=== PATIENT | male | born 1945 | race Caucasian/White ===

== ENCOUNTER 2018-12-15 14:21 | Inpatient (IN) | payer OTHER ==
[~2018-12-15] VITALS: Ht 175.3 cm; Wt 83.7 kg
--- NOTE | ~2018-12-15 | HC ---
[facility] [place] [place] [address] CONSULTATION Name: LEE ANN BRADLEY Room #: 431-P ADM IN M.R.#: [id number] Admission: 12/15/18 ������������������ Attend Phys: Harish Sinclair MD Discharge: ������������������ Date of : 43 Report #: [id number] THIS REPORT FOR: //name// CC: Harish Sinclair Zoey Dickson DATE OF SERVICE: 12/16/2018 WOUND CARE CONSULTATION REQUESTING PHYSICIAN: Harish Sinclair MD. CHIEF COMPLAINT: Right heel ulceration with cellulitis. 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 The patient also has ulcerations on the lateral aspect of his right foot. The patient also has a history of left heel ulceration and most recently the patient started developing ulceration in the sacral region within the past couple of weeks. The patient's states that he tends to pull himself up in bed, which causes some possible shearing forces. The patient, however, because of his insensate condition does not feel this. The patient was brought into the hospital secondary to the home health nurses noted in the wound on his foot was much worse with purulent drainage and foul odor. We have been asked to continue to follow the patient while he is here in the hospital. The patient denies any other new illnesses or concerns besides the new sacral decubitus ulcer. PAST MEDICAL HISTORY: Significant for paraplegia and diabetes mellitus. CURRENT MEDICATIONS: Multiple, I reviewed the patient's medication list. DRUG ALLERGIES: PENICILLIN. SOCIAL HISTORY: The patient has a remote history of smoking, quitting several years ago. Denies alcohol use. The patient lives at home independently with his . FAMILY HISTORY: Not pertinent to current medical condition. REVIEW OF SYSTEMS: CONSTITUTIONAL: The patient denies fevers or chills. NEUROLOGIC: The patient is paraplegic, totally insensate in his lower extremities and pelvic region. EYES: No complaints. ENT: No complaints. [facility] [address] [address] CONSULTATION Name: YESSICADINORAHNOMANZORANLEE ANN Rico Room #: 431-P [facility] IN [facility].#: [id number] Admission: 12/15/18 ������������������ Attend Phys: Harish Sinclair MD Discharge: ������������������ Date of : 44 Report #: [id number] CARDIAC: The patient denies chest pain, palpitations or peripheral edema. RESPIRATORY: The patient denies shortness breath, cough or wheezes. GASTROINTESTINAL: The patient denies nausea, vomiting or diarrhea. GENITOURINARY: The patient denies urgency or frequency. MUSCULOSKELETAL: The patient has no musculoskeletal complaints. SKIN: The patient has an unstageable decubitus ulcer to the right heel and right lateral foot x 3. A deep tissue injury to the left heel distally and an unstageable decubitus ulcer in the left heel superiorly. The patient has unstageable decubitus ulcer to the left lateral malleolus and a stage 3 decubitus ulcer on the sacral region. PHYSICAL EXAMINATION: VITAL SIGNS: Temperature 36.7, pulse 84, respirations 17, BP 108/63. GENERAL: This is an alert and oriented x 3 pleasant white male who is in no obvious distress. HEENT: Normocephalic, atraumatic. Mucous membranes are moist. Pupils are round. Sclerae white. NECK: Supple, nontender. LUNGS: Clear. HEART: Regular. ABDOMEN: Soft, nontender. EXTREMITIES: The patient has minimal spontaneous movement of lower extremities, which is more consistent with spasm. Evaluation of right heel reveals an unstageable decubitus ulcer, which is mix of necrotic tissue and granulation tissue with palpable bone covered with a thin layer of granulation tissue. There is a foul odor from the heel ulcer secondary to moderate seropurulent drainage. On the right lateral foot, there are 3 unstageable decubitus ulcers with eschar. On the left heel, there are 2 ulcerations, one is a deep tissue injury distally and an unstageable decubitus ulcer superiorly. On the left lateral malleolus, there is an unstageable decubitus ulcer with eschar. On the sacral region, there is a stage 3 decubitus ulcer, which is fairly clean and granulating with surrounding friction shearing noted without obvious signs of infection, erythema, or warmth. There is minimal serosanguineous drainage noted without odor. There is no evidence of any underlying deep structures. NEUROLOGIC: Cranial nerves 2-12 are grossly intact. The patient is paralyzed. LABORATORY DATA: White count 8.1, hemoglobin 9.3. Sed rate is 118. Electrolytes within normal limits. BUN 27, creatinine 1.8, albumin 3.2. C-reactive protein is 59. MRI of the right heel reveals osteomyelitis of the calcaneus as well as the base of the fifth metatarsal. WOUND CARE COURSE: I had a long talk with the patient and his and stated given the MRI findings consistent with osteomyelitis and in fact that he is paralyzed, unable to walk, I think a [id number] amputation would be warranted. We will check arterial Dopplers to evaluate the patient's arterial flow in the lower extremity. The patient is agreeable to amputation if that is [address] [address] CONSULTATION Name: LEE ANN BRADLEY Room #: 431-P [facility] IN ..#: [id number] Admission: 12/15/18 ������������������ Attend Phys: Harish Sinclair MD Discharge: ������������������ Date of : 44 Report #: [id number] what it requires and I have assured him that amputation is the best course of action at this time. I also spoke to him at length about the sacral ulcer and that we need to be very cautious with this and make sure that we addressed this aggressively given his insensate condition. By doing this, we will put the patient on low air loss mattress, have him turned every [address] a sacral foam border over the site, change this daily and p.r.n. for soilage. At this time, we will use Dakin's solution to the right heel and foot ulcerations bilaterally, change this daily. We will place the patient in Prevalon boots bilaterally. IMPRESSION: 1. Unstageable decubitus ulcer, right heel with osteomyelitis and cellulitis. 2. Unstageable decubitus ulcer to the left heel superiorly. 3. Deep tissue injury to the left heel distally. 4. Unstageable decubitus ulcer to the right lateral foot x 3. 5. Unstable decubitus ulcer to the left lateral malleolus. 6. Stage 3 decubitus ulcer to the sacrum with surrounding friction shearing. 7. Paraplegia. 8. Diabetes mellitus. 9. Protein-calorie malnutrition -- mild with an albumin of 3.2. 10. Generalized debility. PLAN: IV antibiotics already started on this patient. Dr. Louie Islas has seen the patient from orthopedics and had also agrees with amputation, which will be performed in the next few days. In the meantime, we will continue once again with IV antibiotics as well as aggressive local wound care to the left foot ulcerations as well as the sacrococcygeal region as addressed above. We will make sure we maximize the patient's oral protein supplementation for healing. We will utilize physical and occupational therapy for strengthening. We will continue all other current medications and will continue to follow the patient. I appreciate the ability to consult. ��������������������������������������������� ���������������������������������������� By: ��������������������������������������������� 1821 1323 Gene Klein MD /nt
[2018-12-15 15:07] VITALS: BP 103/62
[2018-12-15 15:07] LABS: BASOPHILS 0.8 % (0.0-2.0); EOSINOPHILS 7.5 % (0.0-3.0); HEMATOCRIT 26.8 % (42.0-52.0); HEMOGLOBIN 9.2 gm/dL (14.0-18.0); LYMPHOCYTES 6.1 % (24.0-44.0); MCH 28.7 pg (26.0-34.0); MCHC 34.2 g/dL (28.0-37.0); MCV 83.9 fL (80.0-100.0); MONOCYTES 4.2 % (1.0-8.0); PLATELET COUNT 165 thou/uL (150-400); POLYS 81.4 % (36.0-66.0); RDW 17.6 % (10.5-14.5); WBC 7.4 thou/uL (4.0-11.0)
[2018-12-15 15:13] LABS: CALCIUM 8.8 mg/dL (8.5-10.1); CREATININE 1.8 mg/dL (0.7-1.3); POTASSIUM 3.8 mmol/L (3.5-5.1)
[2018-12-15 15:18] LABS: ALBUMIN 3.2 g/dL (3.4-5.0); TOTAL BILIRUBIN 0.4 mg/dL (<0.1-1.0); TOTAL PROTEIN 7.5 g/dL (6.4-8.2)
[2018-12-15 18:04] VITALS: BP 101/61
[2018-12-15 18:35] VITALS: BP 101/61
[2018-12-15 19:35] VITALS: BP 101/61
[2018-12-15 20:10] VITALS: BP 109/63
--- NOTE | 2018-12-16 00:12 | NUR ---
PT WAS AN ADMIT FROM ED, WITH HIM, VERY ANXIOUS ABOUT LEAVING PATIENT BUT THEN SHE SAID SHE WILL COME BACK FIRST THING IN AM, PICTURES TO ALL WOUNDS TAKEN, SP CATH DRESSING CHANGED, DRAINING TO DARK WINTER URINE, PT DENIES SENSATION FROM WAIST DOWN, BOTH HEELS PROPED OVER PILLOWS, CONSULTS CALLED TONIGHT, TURNED AND REPOSITIONED, CALL LIGHT WITHIN REACHED, LACTIC OF 3.3 WAS CALLED TO Isaac MCNAIR AND SINCE PT IS ALREADY ON ANTIBIOTICS WILL JUST MONITOR TONIGHT, REPEAT LACTIC TOMORROW. BED ALARM ON, MONITORED.
[2018-12-16] MEDS ORDERED: NORCO 5-325 TA1 EACH PO (02:42)
[2018-12-16] MEDS ORDERED: KEPPRA250 MG PO (02:43)
[2018-12-16] MEDS ORDERED: LINZESS290 MCG PO (02:46)
[2018-12-16] MEDS ORDERED: METFORMIN HCL500 MG PO (02:47)
[2018-12-16] MEDS ORDERED: NAPROSYN500 MG PO (02:47)
[2018-12-16] MEDS ORDERED: PROTONIX40 M1 PO (02:48)
[2018-12-16] MEDS ORDERED: OXYBUTYNIN 5 MG5 M2 PO (02:48)
[2018-12-16] MEDS ORDERED: PREDNISONE 20 M20 MG PO (02:49)
[2018-12-16] MEDS ORDERED: POTASSIUM20 PO (02:49)
[2018-12-16] MEDS ORDERED: XANAX 0.25 MG0.25 MG PO (02:50)
[2018-12-16] MEDS ORDERED: AMLODIPINE BESY10 MG PO (02:50)
[2018-12-16] MEDS ORDERED: LIPITOR 20 MG T20 M1 PO (02:51)
[2018-12-16] MEDS ORDERED: TESSALON PERLE100 MG PO (02:51)
[2018-12-16] MEDS ORDERED: WELLBUTRIN XL150 MG PO (02:52)
[2018-12-16] MEDS ORDERED: FLEXERIL PO (02:53)
[2018-12-16] MEDS ORDERED: DOXYCYCLINE 10100 MG PO (02:54)
[2018-12-16] MEDS ORDERED: ZOLOFT50 MG PO (02:55)
[2018-12-16] MEDS ORDERED: FLOMAX0.4 MG PO (02:56)
[2018-12-16 04:29] VITALS: BP 107/58
[2018-12-16 05:07] LABS: HEMATOCRIT 26.9 % (42.0-52.0); HEMOGLOBIN 9.3 gm/dL (14.0-18.0); MCHC 34.7 g/dL (28.0-37.0); MCV 83.7 fL (80.0-100.0); RBC 3.21 mil/uL (4.50-6.00); RDW 17.8 % (10.5-14.5); WBC 8.1 thou/uL (4.0-11.0)
[2018-12-16 05:26] LABS: CREATININE 1.8 mg/dL (0.7-1.3); POTASSIUM 4.5 mmol/L (3.5-5.1)
[2018-12-16 08:07] VITALS: BP 105/59
[2018-12-16] MEDS ORDERED: BENADRYL25 MG PO (11:17)
[2018-12-16] MEDS ORDERED: MUCINEX100 MG PO (11:19)
--- NOTE | 2018-12-16 11:47 | NUR ---
ASSUMED CARE AT 0700, SHIFT ASSESSMENT DONE, MEDS GIVEN, VSS. DENIES ANY PAIN, NAUSEA, VOMITING. RECEIVING IV ANTIBITOICS. SEEN BY DR JULIO AND ALISHA. WILL CONTINUE TO ASSESS AND ASSIST WITH ADLs NEEDED.
--- NOTE | 2018-12-16 13:46 | NUR ---
PT ADMITTED RELATED TO HEEL DECUB. CM REVIEWED CHART AND SPOKE WITH CARE TEAM. CM MET WITH PT AT BEDSIDE THIS DAY. PT IS A&O X4. CM ROLE INTRODUCED. PT INDICATED HE LIVES IN AN APARTMETN WITH HIS WITH NO STEPS TO ENTER AND NO STEPS INSIDE. 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 PT INDICATED HE HAS A MANUAL WHEELCHAIR. ELECTRIC JC LIFT, SLIDE BOARD, AND HOSPITAL BED FOR USE IN THE HOME. PT INDICATED THAT HE IS NEARING THE END OF THE PROCESS OF GETTING AN ELECTRIC WC THROUGH MEDICARE. PT INDICATED HE HAD BEEN ON SERVICE WITH [facility] AND AND THAT HE WOULD LIKE TO USE THEM AGAIN UPON DC. PT INDICATED HE HOPES TO RETURN HOME ONCE MEDICALLY STABLE. CM TO FOLLOW INDICATED WITH DC PLANNING.
--- NOTE | 2018-12-16 14:58 | NUR ---
DR GROVES WAS NOTIFIED ABOUT COMPLETION OF MED RECONCILIATION.
--- NOTE | 2018-12-16 15:12 | NUR ---
WOUND CONSULT: PT. WAS SEEN TODAY BY DR. TAPIA AND MYSELF. PT. IS WELL KNOWN TO THE WOUND CARE TEAM DR. TAPIA HAS BEEN FOLLOWING THIS PT. IN THE WOUND CLINIC. PT. WAS ADMITTED WITH MULTIPLE PRESSURE ULCERS. RIGHT HEEL-UNSTAGABLE RIGHT LATERAL FOOT X3-UNSTAGABLE LEFT HEEL DISTAL-DEEP TISSUE INJURY LEFT HEEL SUPERIOR-UNSTAGABLE LEFT LATERAL MALLEUS-UNSTAGABLE SACRUM-STAGE 3 PRESSURE ULCER WITH FRICTION SHEARING PT. RIGHT HEEL AND FOOT HAS MOIST, BLACK NECROTIC TISSUE PRESENT THROUGHOUT THE WOUND BED WITH A FOUL ODOR WELL. ALL OTHER WOUNDS ARE STABLE AT THIS TIME. RECOMMENDATIONS: WOUND CARE TO ALL HEEL AND FEET WOUNDS: GENTLY CLEANSE AREA WITH WOUND CLEANSER OR NORMAL SALINE, PACK WITH DAKIN MOIST KERLIX, COVER WITH ABD, SECURE WITH TAPE, COMPLETE CARES DAILY AND PRN. WOUND CARE TO SACRUM: GENTLY CLEANSE AREA WITH WOUND CLEANSER OR NORMAL SALINE, COVER WITH SMALL SACRAL FOAM BORDER, CHANGE DAILY OR PRN FOR SOILAGE TURN Q2 HOURS KEEP PT. OFF WOUNDS MUCH POSSIBLE. PT. AND STAFF NURSE WERE INSTRUCTED ON PLAN OF CARE.
[2018-12-16 16:21] VITALS: BP 108/63
[2018-12-16 20:45] VITALS: BP 121/64
--- NOTE | 2018-12-17 04:58 | NUR ---
ASSUMED PT CARE 0. PT ALERT AND ORIENTED. REASSESSMENT COMPLETE. VSS. IV DRESSING C/D/I, NO SIGNS OF INFILTRATION. PT DENIES N/V. REPORTS PAIN, SEE EMAR. DRESSINGS BLE C/D/I. PT CALL LIGHT WITHIN REACH, WILL CONTINUE POC UNTIL EOS.
[2018-12-17 05:20] VITALS: BP 95/52
[2018-12-17 07:35] VITALS: BP 111/63
--- NOTE | 2018-12-17 07:50 | HC ---
[facility] [address] [place] [place] [address] CONSULTATION Name: LEE ANN BRADLEY Room #: 431-P ADM IN M.R.#: [id number] Admission: 12/15/18 ������������������ Attend Phys: Harish Sinclair MD Discharge: ������������������ Date of : 44 Report #: [id number] THIS REPORT FOR: //name// CC: Harish Dickson CHIEF COMPLAINT: Paraplegia with bilateral heel ulcers with chronic osteomyelitis, right heel. HISTORY OF PRESENT ILLNESS: This 73-year-old gentleman is a paraplegic and nonambulatory. He has developed bilateral heel ulcers, which have been managed by wound care for some time, now the right side is much more severe. He has apparently had a surgical debridement several months ago, but I am uncertain whether that surgeon feels further debridement would be helpful. Now, he is admitted for further evaluation and treatment. At the time of my evaluation, he is alert and oriented and states he feels fine and does not have a fever. He is not having any discomfort due to his neurologic deficit. Both heels demonstrate sizable deep ulcers, more severe on the right than the left. I suspect this involves the bone, probably with chronic osteomyelitis. I have not changed the dressing on the opposite side, but I understand the problem is less severe there. X-rays have revealed no obvious bony destruction or fracture. MRI study of the right heel is pending at this time. In summary, I think we can certainly continue with wound care and ongoing debridements and dressing changes as long as there is not progressive cellulitis or spreading infection; however, I doubt this wound will ever heal in. Consequently, at some point, I think below-knee amputation is probably the best option. I will see what the MRI today shows and I am waiting for opinions from Dr. Griffith and from the wound care team. I believe the patient already has this since the below-knee amputation may be necessary. However, he notes his only became aware that this was a possibility yesterday and she is having some difficulty agreeing; therefore, I think the patient and family will need some time to discuss this issue. Eventually, I think below-knee amputation on the right side is probably the best option. I will comment further when the MRI is available for review. ��������������������������������������������� <ELECTRONICALLY SIGNED> ���������������������������������������� By: Louie Islas MD ��������������������������������������������� 12/17/18 0750 1049 2147 Louie Islas MD /nt
--- NOTE | 2018-12-17 09:12 | HC ---
[facility] [address] [place] [address] CONSULTATION Name: LEE ANN BRADLEY Room #: 431-P ADM IN M.R.#: [id number] Admission: 12/15/18 ������������������ Attend Phys: Harish Sinclair MD Discharge: ������������������ Date of : 44 Report #: [id number] THIS REPORT FOR: //name// CC: Harish Dickson INFECTIOUS DISEASE CONSULTATION ATTENDING PHYSICIAN: Dr. Sinclair REASON FOR CONSULTATION: Antibiotic management. HISTORY OF PRESENT ILLNESS: This 73-year-old white man is admitted with right heel decubitus with necrotic tissue and possible exposed bone -- chronic osteomyelitis. The patient had the decubitus for a while. He was evaluated by wound care doctors. He did receive some antibiotics, had noted some worsening of findings and is admitted. He is scheduled to have an MRI of the right foot today. 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 He does have no recollection of the name of any of the physicians involved in his care or the name of the germ. He believes none was isolated during the episode of "meningitis." Also, positive for diabetes mellitus. DRUG ALLERGIES: PENICILLIN. MEDICATIONS: The patient is currently on treatment with meropenem 500 mg IV every 8 hours, vancomycin 500 mg IV every 12 hours, insulin lispro per sliding scale a.c. and at bedtime, pantoprazole 40 mg p.o. b.i.d., p.r.n. glucose, glucagon, enoxaparin 30 mg subQ daily at bedtime, p.r.n. ondansetron, fentanyl, acetaminophen, has received intravenous fluids 1000 mL every 8 hours. SOCIAL HISTORY: . Three children, the oldest of unknown cause. ____. REVIEW OF SYSTEMS: The patient tells me he started to regain some motion of the lower extremities and has a feeling of a pressure on the legs and touch sensation on abdomen and chest. PHYSICAL EXAMINATION: GENERAL: A well-developed, paralyzed man, able to barely move lower extremities. VITAL SIGNS: Temperature 98.5, pulse 65, respirations 17, BP 105/59. Height 5 feet 9 inches, weight 155 or 184.6 pounds. I believe the latter more close to the real weight. HEENT: Missing teeth. Pupils reactive. [address] [address] CONSULTATION Name: LEE ANN BRADLEY Room #: 431-P [facility] IN [facility]#: [id number] Admission: 12/15/18 ������������������ Attend Phys: Harish Sinclair MD Discharge: ������������������ Date of : 44 Report #: [id number] NECK: Supple, no thyromegaly. LUNGS: Clear to auscultation. HEART: S1, S2. No gallop or murmur. ABDOMEN: Has suprapubic cystostomy. BACK: Surgical scar around the T-spine area. NEUROLOGIC: Paraplegia. EXTREMITIES: Reveal stage 4 right heel decubitus with necrotic tissue and exposed bone. Some superficial decubitus on the left heel present as well. LABORATORY DATA: Revealed the following abnormals: BUN 27, creatinine 1.8, glucose 138, albumin 3.2. CRP 59.2, hemoglobin 9.3 g/dL. The white blood cell count differential revealed 81.4% segmented neutrophils yesterday. The urinalysis is pending. MICROBIOLOGY DATA: All pending. RADIOLOGY EVALUATION: X-ray of the right foot revealed possible osteomyelitis of os calcis. Large soft tissue decubitus. MRI pending. ASSESSMENT: 1. Stage 4 right heel decubitus with exposed bone, possible acute -- chronic osteomyelitis. 2. Paraplegia secondary to (query) spinal cord injury, status post surgical intervention, undetermined type. 3. Diabetes mellitus. 4. Anemia of chronic disease. 5. Suprapubic cystostomy. SUGGESTIONS: 1. Recommend surgical consultation. 2. Possibly, we would proceed with BKA if everybody agrees. Continue coverage with vancomycin and meropenem for time being. Monitor sedimentation rate as well. Dr. Sinclair, thank you for requesting my suggestions. ��������������������������������������������� <ELECTRONICALLY SIGNED> ���������������������������������������� By: Denver Griffith MD ��������������������������������������������� 12/17/18 0912 1020 09 Denver Griffith MD /nt
--- NOTE | 2018-12-17 09:15 | NUR ---
WOUND FOLLOW UP: PT. WAS SEEN TODAY BY DR. TAPIA AND MYSELF. PT. WILL BE HAVING A RIGHT BKA PROCEEDURE COMPLETED EITHER TODAY OR THURSDAY PER DR. JULIO. PT. SACRUM HAS IMPROVED SINCE EVALUATION YESTERDAY. PT. HAS NO COMPLAINTS TODAY. RECOMMENDATIONS: CONTINUE WITH CURRENT PLAN OF CARE. PT. AND STAFF NURSE WERE INSTRUCTED ON PLAN OF CARE.
--- NOTE | 2018-12-17 18:10 | NUR ---
ASSUMED CARE OF PT AT 0700. ASSESSMENT COMPLETED, CHARTED. A&O,X4. C/O MINOR HEEL PAIN, DOES NOT REQUEST PAIN MEDS. AT BEDSIDE. ROOM AIR. HX PARAPLEGIA. SUPRAPUBIC CATHETER IN PLACE. ACHS, NO INSULIN COVERAGE REQUIRED. POC FOR BKA WITH DR. MCMANUS. OR TOOK THE PT VIA CART AT APPROX 14:00. NOTIFIED. WILL WAIT FOR RETURN.
[2018-12-17 20:30] VITALS: BP 106/64
[2018-12-17 21:30] VITALS: BP 122/71
[2018-12-17 22:40] VITALS: BP 121/74
[2018-12-17 23:30] VITALS: BP 122/67
[2018-12-18 03:00] VITALS: BP 126/72
--- NOTE | 2018-12-18 04:19 | NUR ---
PATIENT IS ALERT AND ORIENTED. PATIENT IS PARAPLEGIC. PATIENT IS POST OP. VITALS HAVE BEEN STABLE. POST OP DRESSING CLEAN DRY AND INTACT. PATIENT DENIES PAIN OR NAUSEA. PATIENT TOLERATING PO INTAKE. PATIENT IS Q2 TURN. PATIENT IS INCONTIENT. LT FOOT DRESSING CLEAN DRY INTACT. PATIENT LBM WASTHE . [facility] HAS HEMOVAC TO RT LOWER LEG INTACT. ESTIMATED BLOOD LOSS FROM SURGERY IS 200ML. PATIENT IS RESTING COMFORTABLY IN BED. WCM. PATIENT IS PROGRESSING TO GOALS.
[2018-12-18 05:29] LABS: HEMATOCRIT 22.9 % (42.0-52.0)
[2018-12-18 08:10] VITALS: BP 105/77
[2018-12-18 11:22] LABS: URINE BILIRUBIN NEGATIVE (Negative); URINE BLOOD 1+ (Negative); URINE CLARITY CLEAR; URINE COLOR YELLOW; URINE GLUCOSE-RANDOM* NEGATIVE (Negative); URINE KETONES NEGATIVE (Negative); URINE LEUKOCYTES-REFLEX NEGATIVE (Negative); URINE NITRITE-REFLEX NEGATIVE (Negative); URINE PROTEIN (DIPSTICK) NEGATIVE (Negative); URINE UROBILINOGEN 0.2 E.U./dl (0.2-1.0)
[2018-12-18 11:34] LABS: CASTS None Seen /LPF (None Seen); SQUAMOUS 0-3 Few /LPF (0-3)
[2018-12-18 11:35] LABS: BACTERIA-REFLEX 1-9 Few /HPF (None Seen)
[2018-12-18 11:36] LABS: URINE WBC-REFLEX 0-5 Rare /HPF (0-5)
[2018-12-18 11:37] LABS: CALCIUM OXALATE 0-3 Few /LPF (None Seen)
[2018-12-18 16:21] VITALS: BP 90/52
--- NOTE | 2018-12-18 17:15 | NUR ---
HEMOVAC DCD ORDERED.
[2018-12-18 21:25] VITALS: BP 128/66
[2018-12-19 04:15] VITALS: BP 107/63
--- NOTE | 2018-12-19 05:11 | NUR ---
ASSUMED PT CARE 1899. PT ALERT AND ORIENTED. REASSESSMENT COMPLETE. VSS. IC DRESSING C/D/I, NO SIGNS OF INFILTRATION. PT DENIES N/V, DENIES PAIN. CALL LIGHT AND PERSONAL BELONGINGS WITHIN REACH, WILL CONTINUE POC UNTIL EOS.
--- NOTE | 2018-12-19 08:12 | O ---
[facility] [place] [address] OPERATIVE REPORT Name: LEE ANN BRADLEY Room #: 431-P ADM IN M.R.#: [id number] Admission: 12/15/18 ������������������ Attend Phys: Harish Sinclair MD Discharge: ������������������ Date of : 44 Report #: [id number] THIS REPORT FOR: //name// CC: Harish Dickson DATE OF SERVICE: 12/17/2018 PREOPERATIVE DIAGNOSIS: Right heel calcaneal osteomyelitis. POSTOPERATIVE DIAGNOSIS: Right heel calcaneal osteomyelitis. PROCEDURE: Right below knee amputation. SURGEON: Oz Calhoun MD. INSTRUMENTATION SUPERVISOR: Fern Ferrari PA-C. ANESTHESIA: LMA. TOURNIQUET TIME: 20 minutes. COMPLICATIONS: None. SPECIMENS: Right foot and ankle were sent to pathology. ESTIMATED BLOOD LOSS: 50 mL. CONDITION UPON LEAVING THE OPERATING ROOM: Stable. INDICATIONS FOR PROCEDURE: The patient is a 73-year-old gentleman who is a thoracic level paraplegic. He has bilateral heel decubitus ulcers. His right heel shows a stage IV decubitus ulcer with osteomyelitis of the calcaneus and has failed wound care and antibiotics. After discussion, he and his , they elected for below knee amputation. DESCRIPTION OF PROCEDURE: Risks, benefits, alternatives, complications were discussed in detail with the patient including but not limited to risk of anesthesia, risk of damage to nerves, arteries, blood vessels, risk for infection, bleeding, risk for continued infection and need for higher level amputation, informed consent was obtained from the patient. Right leg was appropriately marked in the preoperative holding area. Previously been on IV antibiotics and these were continued for preoperative antibiotics. He was brought to the operating room and placed in supine position on operating room table. LMA anesthesia was induced without complication. Tourniquet was placed on the right thigh. Right lower extremity was prepped and draped in normal [address] [address] OPERATIVE REPORT Name: LEE ANN BRADLEY Rico Room #: 431-P [facility] IN [facility].#: [id number] Admission: 12/15/18 ������������������ Attend Phys: Harish Sinclair MD Discharge: ������������������ Date of : 44 Report #: [id number] sterile fashion. Timeout was performed properly identifying the patient and procedure as well as instrumentation. All in the operating room were in agreement. Right lower extremity was elevated, tourniquet inflated. Tourniquet time was 20 minutes. The skin incision was then marked on the skin with a marking pen for a standard below-knee amputation with a posterior flap. An incision was made with a 10 blade and dissection was taken down to the musculature with Bovie cautery and vessels that were encountered were dissected out and tied off with 0 silk. The tibial and fibular resection was made with the oscillating saw and the amputation was completed with Bovie. The posterior compartment was debulked, the tibial nerve was identified and cut sharply to prevent seroma formation. The tourniquet was deflated. Hemostasis was obtained with Bovie cautery with the stalk thoroughly irrigated with normal saline. The posterior musculature was then sewed to the anterior fascia with 0 Vicryl. A deep drain was placed. The skin was closed with 2-0 Vicryl and skin bobo. Soft dressing of 4 x 4, Webril, Aris wrap were applied. The patient tolerated this procedure well and went to recovery room under care of anesthesia postoperatively. ��������������������������������������������� <ELECTRONICALLY SIGNED> ���������������������������������������� By: Oz Calhoun MD ��������������������������������������������� 12/19/18 0812 1851 [id number] Oz Calhoun MD /nt
--- NOTE | 2018-12-19 14:24 | NUR ---
ASSESMENT COMPLETED. VSS. A/O/FLAT. DENIES PAIN. NO NOTED SOA. NO NV. IV INFLITRATED- IV RESTARTED ON LEFT FA. REPOSITIONED Q2. ZGUARD APPLIED TO COCCYX. DRESSING TO LEFT HEEL CHANGED. DRESSING TO RIGHT STUMP CHANGED-XEROFROM/ABD/KERLIX/ISAAC. PT RESTING IN BED NO CONCERNS VOICED. WILL CONT. TO MONITOR.
[2018-12-19 15:48] VITALS: BP 106/54
[2018-12-19 20:07] VITALS: BP 116/59
[2018-12-20 05:17] VITALS: BP 112/51
--- NOTE | 2018-12-20 05:38 | NUR ---
ASSUMED PT CARE 1899. PT ALERT AND ORIENTED. RESSESSMENT COMPLETE. VSS. IV DRESSING C/D/I, NO SIGNS OF INFILTRATION. PT DENIES N/V, AND PAIN. PT CALL LIGHT AND PERSONAL BELONGINGS WITHIN REACH. WILL CONTINUE POC UNTIL EOS.
[2018-12-20 08:29] VITALS: BP 110/59
[2018-12-20 09:22] LABS: WBC 4.9 thou/uL (4.0-11.0)
[2018-12-20 09:24] LABS: HEMOGLOBIN 6.5 gm/dL (14.0-18.0); MCV 83.1 fL (80.0-100.0); RBC 2.22 mil/uL (4.50-6.00); RDW 17.8 % (10.5-14.5)
[2018-12-20 09:33] LABS: CALCIUM 8.3 mg/dL (8.5-10.1); CREATININE 1.3 mg/dL (0.7-1.3); POTASSIUM 3.6 mmol/L (3.5-5.1)
[2018-12-20 09:35] LABS: HEMATOCRIT 18.8 % (42.0-52.0)
[2018-12-20 10:22] LABS: % SATURATION 13 % (20-39); IRON 17 ug/dL (65-175); TIBC 128 ug/dL (250-450)
[2018-12-20 10:39] LABS: HEMOGLOBIN 6.4 gm/dL (14.0-18.0)
[2018-12-20 10:40] LABS: HEMATOCRIT 18.4 % (42.0-52.0)
[2018-12-20 15:49] VITALS: BP 110/64; BP 120/68
--- NOTE | 2018-12-20 16:13 | NUR ---
UNIT #1 OF PRBC STARTED. PT TOLERATING WELL. WILL CONT. TO MONITOR.
[2018-12-20 17:02] VITALS: BP 119/67
--- NOTE | 2018-12-20 17:30 | NUR ---
AWAITING THERAPY REC AND PT'S DECISION ON 5N VS RESUMPTION OF HH SERVICES WITH JUDY .
--- NOTE | 2018-12-20 18:28 | NUR ---
WOUND FOLLOW UP: PT. WAS SEEN TODAY BY DR. ARAMBULA AND MYSELF. PT. WOUNDS ARE ALL CLINICALLY BETTER TODAY. RECOMMENDATIONS: CONTINUE WITH CURRENT PLAN OF CARE. PT. AND STAFF NURSE WERE INSTRUCTED ON PLAN OF CARE.
[2018-12-20 19:54] VITALS: BP 120/68
[2018-12-20 20:40] LABS: HEMATOCRIT 21.8 % (42.0-52.0); HEMOGLOBIN 7.6 gm/dL (14.0-18.0)
[2018-12-21 04:51] VITALS: BP 122/64
--- NOTE | 2018-12-21 04:59 | NUR ---
ASSUMED PT CARE 1899. PT ALERT AND ORIENTED. REASSESSMENT COMPLETE. VSS. IV DRESSING C/D/I, NO SIGNS OF INFITLRATION. PT DENIES N/V, AND PAIN. PT CALL LIGHT AND PERSONAL BELONGINGS SUSANA VILLASEÑOR, WILL CONTINUE POC UNTIL EOS.
[2018-12-21 05:24] LABS: ABSOLUTE NEUTROPHILS 3.3 thou/uL (1.4-8.2); BASOPHILS 0.6 % (0.0-2.0); EOSINOPHILS 9.3 % (0.0-3.0); HEMATOCRIT 20.7 % (42.0-52.0); HEMOGLOBIN 7.3 gm/dL (14.0-18.0); MCH 29.4 pg (26.0-34.0); MCHC 35.3 g/dL (28.0-37.0); MCV 83.3 fL (80.0-100.0); MONOCYTES 6.5 % (1.0-8.0); PLATELET COUNT 124 thou/uL (150-400); POLYS 74.6 % (36.0-66.0); RBC 2.49 mil/uL (4.50-6.00); RDW 16.6 % (10.5-14.5); WBC 4.4 thou/uL (4.0-11.0)
[2018-12-21 05:31] LABS: CALCIUM 8.2 mg/dL (8.5-10.1); CREATININE 1.3 mg/dL (0.7-1.3)
[2018-12-21 07:22] VITALS: BP 113/89
--- NOTE | 2018-12-21 10:20 | NUR ---
WOUND FOLLOW UP: PT. WAS SEEN TODAY BY DR. ARAMBULA AND MYSELF. DRESSING TO RIGHT BKA SITE WAS CHANGED TODAY AND ORDERS WERE PLACED FOR INCISON CARE. AMPU SHEILD WAS ORDERED FROM [facility]. RECOMMENDATIONS: CONTINUE WITH CURRENT PLAN OF CARE. PT. AND STAFF NURSE WERE INSTRUCTED ON PLAN OF CARE.
--- NOTE | 2018-12-21 15:44 | NUR ---
Following for d/c planning needs. Pt has been accepted to [facility], but is not medically stable for d/c from acute today. According to physician, pt may be ready on Thursday. Will remain available to assist as needed.
[2018-12-21 16:03] VITALS: BP 101/59
--- NOTE | 2018-12-21 20:08 | NUR ---
SACRAL WOUND DRESSING CHANGE WAS PERFORMED. WOUND TO SACRUM HAS DETERIORATED. WOUND PICTURE WAS TAKEN AD PUT UNDER PROGRESS NOTE. ONCOMING NURSE WAS NOTIFIED ABOUT THE ISSUE.
[2018-12-21 20:30] VITALS: BP 124/65
--- NOTE | 2018-12-22 04:45 | NUR ---
ASSUMED PT CARE 1899. PT ALERT AND ORIENTED. REASSESSMENT COMPLETE. VSS. IV DRESSING C/D/I, NO SIGNS OF INFILTRATION. PT DENIES PAIN, DENIES N/V. Q2 TURNS. PT CALL LIGHT AND PERSONAL BELONINGS WITHIN REACH. WILL CONTINUE POC UNTIL EOS.
[2018-12-22 05:00] VITALS: BP 128/70
[2018-12-22 05:10] LABS: HEMATOCRIT 21.4 % (42.0-52.0); HEMOGLOBIN 7.4 gm/dL (14.0-18.0); MCH 28.4 pg (26.0-34.0); MCHC 34.4 g/dL (28.0-37.0); MCV 82.5 fL (80.0-100.0); RBC 2.59 mil/uL (4.50-6.00); RDW 16.4 % (10.5-14.5); WBC 4.2 thou/uL (4.0-11.0)
[2018-12-22 05:22] LABS: CALCIUM 8.3 mg/dL (8.5-10.1); CREATININE 1.2 mg/dL (0.7-1.3); MAGNESIUM 1.8 mg/dL (1.8-2.4); POTASSIUM 3.9 mmol/L (3.5-5.1)
[2018-12-22 08:00] VITALS: BP 133/77
[2018-12-22 08:19] VITALS: BP 133/77
--- NOTE | 2018-12-22 11:20 | NUR ---
ASSUMED CARE AT 0700, SHIFT ASSESSMENT DONE, VSS. DENIES PAIN, NAUSEA, VOMITING. MORNING MEDS GIVEN. WOUND CARE TO LEFT HEEL, SACRUM AND LEFT STUMP DONE. IS SCHEDULED TO BE DISCHARGED TO REHAB TODAY. WILL CONTINUE TO ASSESS AND ASSIST WITH ADLs NEEDED.
[2018-12-22] MEDS ORDERED: MIRALAX17 GM PO (14:44)
[2018-12-22] MEDS ORDERED: IRON325 PO (14:44)
[2018-12-22] MEDS ORDERED: ACETAMINOPHEN325 M1 PO (14:44)
[2018-12-22] MEDS ORDERED: ENOXAPARIN30 MG/0.1 SUBQ (14:44)
--- NOTE | 2018-12-22 15:52 | NUR ---
Following for d/c planning needs. Pt to be transferred to [facility] today. Pt and spouse in agreement with plans. No other needs identified.
--- NOTE | 2018-12-22 16:06 | PATH ---
[facility] [address] [place] [address] PATHOLOGY RPT PROCEDURE Name: LEE ANN BRADLEY Rico Room #: 431-P ADM IN M.R.#: [id number] ������������������ Admission: 12/15/18 ������������������ Date of : 43 Discharge: Report #: [id number] Path Case #: [id number] LCA Accession Number: [id number] . 01 Material submitted: . leg - RIGHT BELOW THE KNEE AMPUTATION. Modifiers: right . 01 Clinician provided ICD-10: y . 01 Clinical history: . Pressure ulcer . 02 Diagnosis: Leg, right, below the knee amputation: - Ulceration associated with gangrenous necrosis and marked acute inflammation extending into underlying subcutaneous tissue as well as bone associated with acute osteomyelitis. - Vessels showing moderate atherosclerosis associated with luminal narrowing. - Surgical margins of skin and bone showing reactive changes and viable tissue. - Vessels at margin are unremarkable. . (IUV:mml; 12/22/2018) QLM/12/22/2018 . 02 Electronically signed: . Sabra Gaxiola MD, Pathologist NPI- [id number] . 01 Gross description: . The specimen is received in a red biohazard bag, labeled,"Lee Ann Bradley, right below knee amputation ", is a right below the knee amputation of the right leg measuring 20.0 cm from distal tip of big toe to heel, 24.0 cm from heel to proximal skin resection margin. Extending above the proximal skin resection margin are two segment of bones: Tibia measuring 7.5 cm in length by 3.5 x 2.5 cm and fibula measuring 3.0 cm in length by 1.5 x 1.02 cm. The skin, soft tissue, and bone at the margin appear viable. The artery at the margin is patent. There are 5 toes, all with intact thickened, yellow, crusted nails. There is a 7.3 x 5.5 cm ulcer at the heel showing a reis-white necrotic ulcer bed that possibly extends to the underlying bone. In addition, there is a similar ulcer measuring 2.4 x 2.0 that is 4.2 cm distal to the knee ulcer on the lateral aspect. The skin is jimenez-pink and edematous surrounding the ulcer. The posterior artery shows intimal thickening and the remaining anterior, dorsalis pedis artery shows a patent lumen. No venous thrombi are [address] [address] PATHOLOGY RPT PROCEDURE Name: LEE ANN BRADLEY Rico Room #: 431-P ADM IN M.R.#: [id number] ������������������ Admission: 12/15/18 ������������������ Date of : 43 Discharge: Report #: [id number] Path Case #: [id number] identified. [place] tissue is submitted as follows: A1. Proximal margin, skin and underlying soft tissue A2. Proximal margin, bones (Tibial =bone marrow and fibula inked blue both after decalcification) A3. Proximal margin, vessels A4. Heel ulcer to underlying bone after decalcification A5. Vessels, Anterior inked blue, posterior none and dorsalis pedis blcak ([facility]; 12/20/2018) SHS/SHS . 02 Pathologist provided ICD-10: L97.919, I96, L08.9, M86.10, I70.202 . 02 CPT . 707895, 800991 Specimen Comment: A courtesy copy of this report has been sent to Specimen Comment: [phone], , . Specimen Comment: Report sent to ,DR GROVES / DR HOLT Performed at: [address] [facility], [place], [place] [id number] MD Onur Joe MD Phone: [phone] Performed at: [address] [facility] [id number] MD Sabra Gaxiola MD Phone: [phone]
--- NOTE | 2018-12-22 17:12 | NUR ---
DISCHARGE ORDER RECEIVED, REPORT CALLED TO GYPSY, PATIENT WAS TRANSPORTED UP TO REHAB BY NURSING STAFF.
== END 2018-12-22 16:43 | DRG 616 ==
LOC: ER 14:21 → 4E 16:40 → EROBS 16:40 → 4E 19:34
PROVIDERS: Emergency Medicine; Hospitalist; Internal Medicine; Internal Medicine Geriatric Medicine; Nurse Practitioner Family; Orthopaedic Surgery; ADMIT Hospitalist
PROC: 0Y6H0Z2 Detachment at Right Lower Leg, Mid, Open Approach (ICD-10-PCS; principal; 2018-12-17)
PROC: 30233N1 Transfusion of Nonautologous Red Blood Cells into Peripheral Vein, Percutaneous Approach (ICD-10-PCS; 2018-12-20)
DX: E11.621 Type 2 diabetes mellitus with foot ulcer (principal); L89.153 Pressure ulcer of sacral region, stage 3; L89.524 Pressure ulcer of left ankle, stage 4; L89.614 Pressure ulcer of right heel, stage 4; E11.52 Type 2 diabetes mellitus with diabetic peripheral angiopathy with gangrene; G82.20 Paraplegia, unspecified; E44.1 Mild protein-calorie malnutrition; L97.329 Non-pressure chronic ulcer of left ankle with unspecified severity; D62 Acute posthemorrhagic anemia; M86.8X7 Other osteomyelitis, ankle and foot; L97.419 Non-pressure chronic ulcer of right heel and midfoot with unspecified severity; L03.115 Cellulitis of right lower limb; G00.9 Bacterial meningitis, unspecified; E11.69 Type 2 diabetes mellitus with other specified complication; D63.8 Anemia in other chronic diseases classified elsewhere; L89.629 Pressure ulcer of left heel, unspecified stage; N18.3 Chronic kidney disease, stage 3 (moderate); E11.22 Type 2 diabetes mellitus with diabetic chronic kidney disease; M62.84 Sarcopenia; N40.0 Benign prostatic hyperplasia without lower urinary tract symptoms; R41.81 Age-related cognitive decline; Z88.0 Allergy status to penicillin; Z68.27 Body mass index [BMI] 27.0-27.9, adult; Z79.1 Long term (current) use of non-steroidal anti-inflammatories (NSAID); Z79.899 Other long term (current) drug therapy; Z87.891 Personal history of nicotine dependence
CPT/HCPCS: 10084; 50010; 50101; 50386; 51412; 51771; 53000; 56524; 56525; 56528; 57091; 57180; 62110; 62900; 70005

== ENCOUNTER 2018-12-22 12:54 | Inpatient (IN) | payer OTHER ==
[~2018-12-22] VITALS: Ht 175.3 cm; Wt 87.1 kg
[~2018-12-22 12:54] MED LIST: AMLODIPINE BESY10 MG PO; BENADRYL25 MG PO; DOXYCYCLINE 10100 MG PO; FLEXERIL PO; FLOMAX0.4 MG PO; KEPPRA250 MG PO; LINZESS290 MCG PO; LIPITOR 20 MG T20 M1 PO; METFORMIN HCL500 MG PO; MUCINEX100 MG PO; NAPROSYN500 MG PO; NORCO 5-325 TA1 EACH PO; OXYBUTYNIN 5 MG5 M2 PO; POTASSIUM20 PO; PREDNISONE 20 M20 MG PO; PROTONIX40 M1 PO; TESSALON PERLE100 MG PO; WELLBUTRIN XL150 MG PO; XANAX 0.25 MG0.25 MG PO; ZOLOFT50 MG PO
[2018-12-22] MEDS ORDERED: ACETAMINOPHEN325 M1 PO (14:44)
[2018-12-22] MEDS ORDERED: IRON325 PO (14:44)
[2018-12-22] MEDS ORDERED: ENOXAPARIN30 MG/0.1 SUBQ (14:44)
[2018-12-22] MEDS ORDERED: MIRALAX17 GM PO (14:44)
[2018-12-22 16:45] VITALS: BP 119/67
[2018-12-22 19:45] VITALS: BP 105/49
[2018-12-23 04:35] LABS: HEMATOCRIT 20.7 % (42.0-52.0); HEMOGLOBIN 7.1 gm/dL (14.0-18.0); MCH 28.7 pg (26.0-34.0); MCHC 34.4 g/dL (28.0-37.0); MCV 83.3 fL (80.0-100.0); RBC 2.48 mil/uL (4.50-6.00); RDW 16.7 % (10.5-14.5)
[2018-12-23 04:42] LABS: CALCIUM 8.9 mg/dL (8.5-10.1); CREATININE 1.2 mg/dL (0.7-1.3)
[2018-12-23 08:42] VITALS: BP 102/65
[2018-12-23 11:54] LABS: % SATURATION 25 % (20-39); IRON 38 ug/dL (65-175); TIBC 150 ug/dL (250-450)
[2018-12-23 20:14] VITALS: BP 100/62
[2018-12-24 07:30] VITALS: BP 108/71
[2018-12-24 08:30] VITALS: BP 108/71
--- NOTE | 2018-12-24 12:32 | H ---
[facility] [address] [address] HISTORY AND PHYSICAL Name: LEE ANN BRADLEY Room #: 516-1 ADM IN M.R.#: [id number] Admission: 12/22/18 ������������������ Attend Phys: Louie Cristina MD Discharge: ������������������ Date of : 43 Report #: [id number] THIS REPORT FOR: //name// CC: Louie Wickefrain Yessi DATE OF SERVICE: 12/22/2018 HISTORY OF PRESENT ILLNESS: This is a 73-year-old male who was admitted to [facility] with worsening odor and drainage from a wound on his right heel that has been present for 6 months. He was seen by Orthopedics and confirmed by MRI that he had acute osteomyelitis. He underwent a right xgmzo-klk-tiht amputation on 12/17/2018. Postoperatively, he had some acute blood loss anemia requiring a blood transfusion. 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 He has been residing at home since 04/2018 and working with home health therapies. Due to his debility and need for acute medical management, he is admitted to acute inpatient rehabilitation for physical and occupational therapies. Today, the patient reports a red rash in his groin. He cannot feel from his waist down. He denies any pain in the stump. He denies any cough, shortness of air or chest discomfort. He denies abdominal pain or nausea. He is constipated. He has a suprapubic catheter and has had no trouble with that. He denies any numbness or tingling. He denies dizziness or headache. PAST MEDICAL HISTORY: Bacterial meningitis with subsequent paraplegia, type 2 diabetes, benign prostatic hypertrophy, but has had a suprapubic in place for over a year now. Depression. Hypertension, muscle spasms. HABITS: The patient is a current nonsmoker. No alcohol use, no illicit drug use. SOCIAL HISTORY: The patient is and lives in a house with his . He utilized a Aleksey lift for transfers that his would help with. He got out of bed Thursday, Thursday, Thursday. The remainder days of the week, he do not always get out of bed, it was dependent on his . He was able to bathe and dress his upper extremities and had assist for lower extremity bathing and dressing. He took sponge baths. provides the IADLs. He is unable to use a sliding board transfer prior to this hospital stay due to a sacral wound. He was able to help propel very short distance in the manual wheelchair. He was scheduled to get an electric wheelchair delivered to his house this week. It sounds like a jazk-cu-mjuks wheelchair from what he describes. He does admit some short term memory deficits after the bacterial meningitis. He denies any falls at home. CODE STATUS: Full code. [address] [address] HISTORY AND PHYSICAL Name: LEE ANN BRADLEY Room #: 516-1 ADM IN M.R.#: [id number] Admission: 12/22/18 ������������������ Attend Phys: Louie Cristina MD Discharge: ������������������ Date of : 43 Report #: [id number] ALLERGIES: PENICILLIN. CURRENT MEDICATIONS: MiraLax 17 grams twice a day by mouth. Iron 325 twice a day, nystatin topical, Zoloft 50 mg daily, senna-S 1 tablet twice a day, Wellbutrin 150 mg daily, Norvasc 10 mg daily, metformin 1000 mg twice a day, Protonix 40 mg twice a day, Keppra 250 mg twice a day, Lovenox 30 mg subcutaneous at bedtime, atorvastatin 20 mg at bedtime, Xanax 0.25 mg twice a day, Crowell one tablet q.4 hours p.r.n., Flexeril 10 mg q.8 hours p.r.n., Tylenol 650 q.6 hours p.r.n. REVIEW OF SYSTEMS: Remainder of his 14-point review of systems is negative except as listed in HPI. PHYSICAL EXAMINATION: VITAL SIGNS: Blood pressure 102/65, respirations 17, pulse of 95, temperature is 98.2, O2 sat is 96% on room air. GENERAL: He is awake, alert. He is oriented x 4. He is in no acute distress. HEENT: Head is normocephalic. Eyes: EOMs are intact with no icterus. ENT: No sinus tenderness. LUNGS: Clear to auscultation bilaterally. No crackle, no wheeze. CARDIAC: S1, S2, regular rate and rhythm. ABDOMEN: Bowel sounds are positive, he is soft, nontender, nondistended. GENITOURINARY: He has a suprapubic catheter to dependent drainage, bag with clear yellow urine output. He does have yeast in his groin and around his scrotum. EXTREMITIES: He has functional range of motion of the bilateral upper extremities. Grain Shipper is decreased on the left compared to the right. No clonus. He has the right BKA with Aris wrap clean, dry and intact and AmpuShield in place. Left lower extremity has Kerlix around his foot. He has wounds to the left foot. He also has a red raised rash on the medial aspect of his left calf due to his paraplegia. He cannot describe if it is painful or itchy. I do not note any other rashes. NEUROLOGIC: He is able to move his left foot and toes, however, exam varies. When I saw on acute care, he was able to have some more movement of the hip; however, today, he is not able to. No sensation in bilateral lower extremities. The patient has very poor sitting balance. ASSESSMENT: 1. Right nonhealing foot wound with osteomyelitis, status post xhnei-hsy-ojam amputation on 12/17/2018. 2. Paraplegia since 11/2017 secondary to bacterial meningitis. 3. Acute blood loss anemia, status post transfusion. 4. Stage 3 sacral decubitus ulcer. 5. Left heel deep tendon deep tissue injury. 6. Protein calorie malnutrition. [address] [address] HISTORY AND PHYSICAL Name: CRYSTALJOELLEE ANN iRco Room #: 516-1 ADM IN ..#: [id number] Admission: 12/22/18 ������������������ Attend Phys: Louie Cristina MD Discharge: ������������������ Date of : 43 Report #: [id number] 7. Odilia to groin. 8. Left medial calf rash. 9. Type 2 diabetes. 10. Severe peripheral arterial disease. 11. Chronic kidney disease. 12. 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 13. Constipation. PLAN: The patient has been admitted to inpatient rehabilitation unit for physical and occupational therapies. I will also have speech consult for a cognitive evaluation as his memory tends to vary. He reports his is a poor historian and that he is the one that manages their household accounts at home. We will clarify with Wound Care if patient is able to attempt to slide board transfer at this time, he will continue with the low air loss mattress and nutritional support for wound healing. Infectious Disease is observing the patient off antibiotics at this time. Goals will be working on bed mobility, ADLs and transfers. Please see extensive orders. ��������������������������������������������� <ELECTRONICALLY SIGNED> ���������������������������������������� By: ABE Romo ��������������������������������������������� 12/24/18 1232 [id number] ABE Romo /nt
[2018-12-25 09:04] VITALS: BP 103/62
[2018-12-25 23:00] VITALS: BP 116/78
[2018-12-26 04:30] LABS: HEMATOCRIT 24.3 % (42.0-52.0); HEMOGLOBIN 8.4 gm/dL (14.0-18.0); MCH 29.2 pg (26.0-34.0); MCHC 34.7 g/dL (28.0-37.0); MCV 84.3 fL (80.0-100.0); RBC 2.88 mil/uL (4.50-6.00); RDW 17.1 % (10.5-14.5); WBC 5.5 thou/uL (4.0-11.0)
[2018-12-26 04:44] LABS: CALCIUM 9.1 mg/dL (8.5-10.1); CREATININE 1.2 mg/dL (0.7-1.3); MAGNESIUM 1.9 mg/dL (1.8-2.4); POTASSIUM 4.1 mmol/L (3.5-5.1)
[2018-12-26 08:10] VITALS: BP 121/74
[2018-12-26 20:10] VITALS: BP 118/63
[2018-12-27 09:13] VITALS: BP 111/70
[2018-12-27 19:45] VITALS: BP 102/48
--- NOTE | 2018-12-27 20:29 | HC ---
[facility] [address] [place] [address] CONSULTATION Name: LEE ANN BRADLEY Room #: 516-1 ADM IN M.R.#: [id number] Admission: 12/22/18 ������������������ Attend Phys: Louie Cristina MD Discharge: ������������������ Date of : 44 Report #: [id number] THIS REPORT FOR: //name// CC: Louie Cristina Zoey Dickson DATE OF SERVICE: 12/25/2018 NEUROBEHAVIORAL STATUS EXAM: ATTENDING PHYSICIAN: Louie Cristina MD. COMMUNITY SUPPORT ASSOCIATE: Trev Lopez, PhD. CLINICAL PRESENTATION: The patient is a 73-year-old male admitted to the [facility] rehabilitation unit for a comprehensive inpatient rehabilitation program to assist in management and treatment of deficits from paraplegia as a result of bacterial meningitis. Additionally, his symptoms include limited left lower extremity return, right heel wound, and a recent tcydr-ofj-pekj amputation, wounds to the left heel with a stage 3 decubitus ulcer to the sacrum, acute blood loss anemia. His assessment on the rehab unit includes right nonhealing heel wound with osteomyelitis, status post xyico-xcv-dras amputation on 12/17/2018, paraplegia since 11/2017, stage 3 sacral pressure ulcer, diabetes mellitus type 2, left heel and foot wounds and sacral pressure ulcer. A complete description of his medical condition, history and medications can be found in his medical record. Neuropsychological consultation was requested to provide assistance in the assessment of cognitive and emotional status and to provide recommendations and services. Prior to this most recent medical event, he was living at home with his . As a result of the bacterial meningitis, he has had a long and extended inpatient treatment. He tried to return home with maximizing home care until this most recent readmission to [facility]. He has 2 children living. One child . He is with supportive . The patient is a college graduate. 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 There is no reported history of treatment for alcohol/drug abuse or mood disorder. TECHNIQUES UTILIZED: Clinical interview, review of medical records, staff consultation and behavioral observation, mini mental status exam 2 standard version and verbal fluency assessment (letter and category) and a calibrated ideational fluency assessment and clock drawing. [address] [address] CONSULTATION Name: LEE ANN BRADLEY Room #: 516-1 ADM IN .R.#: [id number] Admission: 12/22/18 ������������������ Attend Phys: Louie Cristina MD Discharge: ������������������ Date of : 43 Report #: [id number] EXAMINATION FINDINGS: The patient was alert and cooperative with the assessment. He accurately described events surrounding his admission. There is no evidence of aphasia. His thoughts are logical and goal oriented. There is no evidence of thought disorder. He does not report suicidal ideation. He describes his symptoms to include depression, anxiety, and memory difficulty. Appetite is reduced. He does not report difficulty with sleep or word finding. The patient was distractable, tangential and hyperverbal throughout the assessment. Performance on the MMSE 2 brief version is within normal limits with a raw score of 15 of 16. He was 3 of 3 for initial registration, 5 of 5 for orientation to time and place and 2 of 3 for immediate recall of 3 items after a brief time delay and distraction. Performance on the standard version of the MMSE 2 was within normal limits with a raw score of 28 of 30. The patient missed one item in copying. Some difficulty in upper extremity dexterity is suggested. Clock drawing was within normal limits. Letter fluency is in the average range with a raw score 28 and T score of 49 was at the 46th percentile. Category fluency is in the low average range with a raw score of 33, T score of 41 and percentile rank of 18. Overall, total fluency is a T-score of 43, which is 24th percentile and low average range. The patient reports difficulty with his memory. Additional deficits are in attention and sustained concentration. Loss of mental set was noted during verbal fluency assessment, suggesting impairment in concentration, divided attention and executive functioning. DIAGNOSTIC IMPRESSION: Mild neurocognitive disorder, due to medical etiology, with intermittent irritability. Adjustment disorder with anxiety and depressed mood. RECOMMENDATIONS: Continued treatment for anxiety and depression that includes the use of an antidepressant and psychotherapy. Assistance with executive functioning and problem solving is needed to insure safety. Family education regarding deficits in problem solving with assistance in decision making. Verbal praise and compliments about participating in theraputic activity and assistance is recognizing strengths and weaknesses. [address] [address] CONSULTATION Name: CHANDLERZORANLEE ANN Room #: 516-1 ADM IN M.R.#: [id number] Admission: 12/22/18 ������������������ Attend Phys: Louie Cristina MD Discharge: ������������������ Date of : 43 Report #: [id number] Thank you very much for allowing me to provide the consultation on this patient. ��������������������������������������������� <ELECTRONICALLY SIGNED> ���������������������������������������� By: Trev Lopez, PhD ��������������������������������������������� 12/27/18 2029 [id number] Trev Lopez, PhD /nt
[2018-12-28 08:21] VITALS: BP 98/57
[2018-12-28 20:30] VITALS: BP 126/55
[2018-12-29 08:00] VITALS: BP 107/61
[2018-12-29 19:54] VITALS: BP 124/73
[2018-12-30 08:18] VITALS: BP 113/68
[2018-12-30 21:13] VITALS: BP 131/78
[2018-12-31 08:00] VITALS: BP 106/62
[2018-12-31 19:54] VITALS: BP 128/72
[2019-01-01 08:50] VITALS: BP 124/69
[2019-01-01 19:30] VITALS: BP 108/82
[2019-01-02 10:02] VITALS: BP 113/63
[2019-01-02 20:10] VITALS: BP 133/63
[2019-01-03 07:40] VITALS: BP 106/64
[2019-01-03 20:35] VITALS: BP 101/52
[2019-01-04 06:22] LABS: ABSOLUTE NEUTROPHILS 3.2 thou/uL (1.4-8.2); BASOPHILS 0.9 % (0.0-2.0); EOSINOPHILS 7.3 % (0.0-3.0); HEMATOCRIT 24.5 % (42.0-52.0); HEMOGLOBIN 8.4 gm/dL (14.0-18.0); LYMPHOCYTES 11.2 % (24.0-44.0); MCH 29.7 pg (26.0-34.0); MCHC 34.4 g/dL (28.0-37.0); MCV 86.3 fL (80.0-100.0); MONOCYTES 7.7 % (1.0-8.0); PLATELET COUNT 151 thou/uL (150-400); POLYS 72.9 % (36.0-66.0); RBC 2.84 mil/uL (4.50-6.00); RDW 19.5 % (10.5-14.5); WBC 4.3 thou/uL (4.0-11.0)
[2019-01-04 06:46] LABS: CALCIUM 9.4 mg/dL (8.5-10.1); CREATININE 1.4 mg/dL (0.7-1.3); MAGNESIUM 2.1 mg/dL (1.8-2.4); POTASSIUM 4.5 mmol/L (3.5-5.1)
--- NOTE | 2019-01-04 09:41 | H ---
[facility] [address] [place] [place] [address] HISTORY AND PHYSICAL Name: LEE ANN BRADLEY Room #: 516-1 ADM IN M.R.#: [id number] Admission: 12/22/18 ������������������ Attend Phys: Louie Cristina MD Discharge: ������������������ Date of : 44 Report #: [id number] THIS REPORT FOR: //name// CC: Louie Dickson DATE OF SERVICE: 12/22/2018 POST-ADMISSION PHYSICIAN EVALUATION HISTORY OF PRESENT ILLNESS: The patient is a 73-year-old white male with a history of premorbid paraplegia since 11/2017 with bacterial meningitis. He has had some limited left lower extremity return. He has had problems with a right heel wound that recently worsened, he was admitted and underwent a below-knee amputation on the right by Orthopedics on 12/17/2018. He also has wounds to the left heel and a stage 3 decubitus ulcer to the sacrum with wound care involved. He had acute blood loss anemia. He has had a decline in his functional abilities and has been admitted for acute in-hospital inpatient rehabilitation. PAST MEDICAL HISTORY, ALLERGIES, SOCIAL HISTORY, AND HABITS: Please see the history and physical. MEDICATIONS: Please see the MAR. This includes vitamins, herbals, and supplements per report. REVIEW OF SYSTEMS: No chest pain, shortness of breath or abdominal discomfort. He does have a suprapubic catheter. He does have some increased tone with his dense paraparesis. PHYSICAL EXAMINATION: GENERAL: A 73-year-old white male in no obvious distress. He is alert, pleasant. VITAL SIGNS: Last recorded temperature 98.2, pulse 95, respirations 17, blood pressure 102/65. CHEST: Sounded clear to auscultation. CARDIOVASCULAR: Regular rate and rhythm. EXTREMITIES: He has functional range of motion of both upper extremities. Strength is a grade 4+/5. Left lower extremity, he can move the left foot and toes some, I would grade it at a 2+. Negative Homans. He could lift that left leg just barely antigravity off the bed and could bend the knee probably at 2+. Unable to move the right stump. He has a stump dressing in place. ASSESSMENT: A 73-year-old white male with the following problem list: 1. Right nonhealing heel wound with osteomyelitis, status post below-knee amputation on 12/17/2018. 2. Paraplegia since 11/2017[place] [address] HISTORY AND PHYSICAL Name: LEE ANN BRADLEY Room #: 516-1 ADM IN [facility]#: [id number] Admission: 12/22/18 ������������������ Attend Phys: Louie Cristina MD Discharge: ������������������ Date of : 43 Report #: [id number] 3. Stage 3 sacral pressure ulcer. 4. Diabetes mellitus type 2. 5. Left heel and foot wounds. 6. Sacral pressure ulcer. PLAN: The patient is admitted for acute in-hospital inpatient rehabilitation. From a postadmission physician evaluation perspective, there are no relevant changes since the preadmission screening. Please see the above review of prior and current medical and functional conditions and comorbidities. Please see the patient's previous and current functional status. As far as risk of complications, the patient has multiple medical comorbidities as noted above. As far as the initial plan of care, this involves the interdisciplinary acute inpatient rehabilitation program with PT and OT, rehab nursing will assist as well as case management and the consulting physicians. The measurable functional goals will be to try to improve his bed mobility. His ability to get back to feeding, grooming himself. He can sponge his upper body independently. They did have a Aleksey lift for transfers. The goal is to improve his strength and endurance and get back to the point where he can return back home with his . Prognosis is reasonably good. Estimated length of stay is probably 10 days to 2 weeks pending progress. Potential barriers would include his multiple medical comorbidities and decreased functional status. The patient meets diagnostic criteria for an acute in-hospital inpatient rehabilitation stay. He meets diagnostic criteria with his below knee amputation and the dense paraparesis. He meets the medical necessity criteria and we will have the oracle identity management consultant physicians continue to follow. He does have the tolerance for therapies and he has appropriate discharge goals back to the home setting. ��������������������������������������������� <ELECTRONICALLY SIGNED> ���������������������������������������� By: Louie Cristina MD ��������������������������������������������� 01/04/19 0941 [id number] Louie Cristina MD /nt
--- NOTE | 2019-01-04 09:41 | PLAN ---
[facility] Dalia Lawrence [facility] [place] [address] REHAB UNIT PLAN OF CARE Name: LEE ANN BRADLEY Room #: 516-1 ADM IN M.R.#: [id number] Admission: 12/22/18 ������������������ Attend Phys: Louie Cristina MD Discharge: ������������������ Date of : 43 Report #: [id number] THIS REPORT FOR: //name// CC: Louie Wickefrain Yessi DATE OF SERVICE: 12/24/2018 PROGRESS NOTE/OVERALL PLAN OF CARE SUBJECTIVE: The patient is seen back today in followup. He is in no distress. OBJECTIVE: NEUROLOGIC: He does have some limited movement of the left lower extremity, a grade 3- with knee flexion and knee extension. He can wiggle his toes, a grade 3-. He is dependent with bed to wheelchair using mechanical lift. He is standby assistance 175 feet with manual wheelchair. Dependent lower body dressing. Max assist upper body dressing. ASSESSMENT: 1. Right nonhealing heel wound with osteomyelitis status post below-knee amputation on 12/17/2018. 2. Dense paraparesis since 12/09/2018. 3. Stage 3 sacral pressure ulcer. 4. Diabetes mellitus type 2. 5. Left heel and foot wounds. 6. Sacral pressure ulcer. PLAN: The overall plan of care is based on the pre-admission screen, post-admission physician evaluation and information garnered from therapy assessments. 1. Estimated length of stay is probably at least 10 days to 2 weeks pending progress. 2. Medical prognosis is reasonably good. 3. Anticipated interventions include the interdisciplinary acute inpatient rehabilitation program with PT and OT, rehab nursing assisting regarding medication management, skin care prophylaxis, bowel and bladder issues. Upon discussion with his nurse and with the patient, he was not on a regular bowel program and we are having problems here, we think, with bowel incontinence. We will put him on a classic bowel program every other day, try to see if we can get more control of this. 4. Anticipated functional outcomes would be for him to improve as far as basic functional mobility issues, ADL independence, strengthening of the left lower extremity, assessment regarding wheelchair mobility, hopeful improvement in transfers. This is difficult with his sacral pressure ulcer. 5. Discharge destination would be back home with his . [address] [address] REHAB UNIT PLAN OF CARE Name: LEE ANN BRADLEY Room #: 516-1 [facility] [place] ..#: [id number] Admission: 12/22/18 ������������������ Attend Phys: Louie Cristina MD Discharge: ������������������ Date of : 43 Report #: [id number] 6. Expected therapy by discipline includes PT and OT 1 to 1-1/2 hours per day, each 5 days a week throughout the duration of the acute inpatient rehabilitation stay. ��������������������������������������������� <ELECTRONICALLY SIGNED> ���������������������������������������� By: Louie Cristina MD ��������������������������������������������� 01/04/19 [id number] [id number] Louie Cristina MD /nt
[2019-01-04 19:30] VITALS: BP 120/75
[2019-01-05 06:00] VITALS: BP 65/41
[2019-01-05 08:20] VITALS: BP 100/58
[2019-01-05 10:39] VITALS: BP 100/58
[2019-01-05 20:00] VITALS: BP 108/69
[2019-01-06 08:00] VITALS: BP 118/74
[2019-01-06 19:30] VITALS: BP 114/67
[2019-01-07 08:12] VITALS: BP 117/71
[2019-01-07] MEDS ORDERED: METFORMIN HCL500 MG PO (10:54)
[2019-01-07] MEDS ORDERED: IRON325 PO (10:54)
[2019-01-07] MEDS ORDERED: BISACODYL SUPP10 MG RECTAL (10:54)
[2019-01-07] MEDS ORDERED: MIRALAX17 GM PO (10:54)
[2019-01-07] MEDS ORDERED: NYAMYC15 GM TOP (10:54)
[2019-01-07] MEDS ORDERED: TRIAMCINOLONE A15 G1 TOP (10:54)
[2019-01-07] MEDS ORDERED: VOLTAREN100 GM TOP (10:54)
[2019-01-07] MEDS ORDERED: ASPIR 8181 MG PO (10:59)
[2019-01-07] MEDS ORDERED: ZOFRAN ODT4 MG DISSOLVE (11:02)
== END 2019-01-07 13:04 | disposition home health service (06) | DRG 539 ==
PROVIDERS: Internal Medicine; Nurse Practitioner; ADMIT Physical Medicine & Rehabilitation
DX: M86.8X7 Other osteomyelitis, ankle and foot (principal); L89.153 Pressure ulcer of sacral region, stage 3; L89.614 Pressure ulcer of right heel, stage 4; G00.9 Bacterial meningitis, unspecified; G82.20 Paraplegia, unspecified; B40.0 Acute pulmonary blastomycosis; D62 Acute posthemorrhagic anemia; B37.89 Other sites of candidiasis; E44.1 Mild protein-calorie malnutrition; N17.9 Acute kidney failure, unspecified; E11.69 Type 2 diabetes mellitus with other specified complication; G31.84 Mild cognitive impairment of uncertain or unknown etiology; F43.23 Adjustment disorder with mixed anxiety and depressed mood; L89.629 Pressure ulcer of left heel, unspecified stage; E11.51 Type 2 diabetes mellitus with diabetic peripheral angiopathy without gangrene; I12.9 Hypertensive chronic kidney disease with stage 1 through stage 4 chronic kidney disease, or unspecified chronic kidney disease; N18.3 Chronic kidney disease, stage 3 (moderate); N31.9 Neuromuscular dysfunction of bladder, unspecified; E11.22 Type 2 diabetes mellitus with diabetic chronic kidney disease; N40.1 Benign prostatic hyperplasia with lower urinary tract symptoms; R33.8 Other retention of urine; K59.00 Constipation, unspecified; R53.81 Other malaise; Z79.899 Other long term (current) drug therapy; Z68.28 Body mass index [BMI] 28.0-28.9, adult; Z89.511 Acquired absence of right leg below knee; Z88.0 Allergy status to penicillin; Z87.891 Personal history of nicotine dependence; Z68.24 Body mass index [BMI] 24.0-24.9, adult
CPT/HCPCS: 10112